=== PATIENT | male | born 1965 | race Hispanic/Latino ===

== ENCOUNTER 2021-05-06 13:37 | Inpatient (IN) | payer SELFPAY ==
[~2021-05-06] VITALS: Ht 172.7 cm; Wt 83.9 kg
[2021-05-06] MEDS ORDERED: SODIUM CHLORIDE 0.9% 1000ML 1,000 ML IV STA (13:50)
[2021-05-06] MEDS ORDERED: DEXAMETHASONE SOD PHOS 10 MG/1 ML VIAL IV ONE (14:00)
[2021-05-06 15:16] LABS: BASOPHILS % 0.1 % (0.0-1.0); EOSINOPHILS % 0.4 % (0.0-6.0); HEMATOCRIT 40.1 % (38.2-49.6); HEMOGLOBIN 13.7 g/dL (14.0-18.0); LYMPHOCYTES # (AUTO) 0.9 (1.0-3.2); LYMPHOCYTES % 9.1 % (18.0-39.1); MEAN CORPUSCULAR HEMOGLOBIN 31.1 pg (28-32); MEAN CORPUSCULAR HGB CONC 34.2 g/dL (31-35); MEAN CORPUSCULAR VOLUME 91.1 fL (81-99); MONOCYTES # (AUTO) 0.7 (0.2-0.8); MONOCYTES % 6.8 % (4.4-11.3); NEUTROPHILS % 83.1 % (38.7-80.0); PLATELET COUNT 540 x10e3/uL (140-360); RED CELL DISTRIBUTION WIDTH 12.5 % (11.7-14.4)
[2021-05-06 15:20] LABS: INR 1.04; PROTHROMBIN TIME 13.8 seconds (11.9-14.5)
[2021-05-06 15:21] LABS: PARTIAL THROMBOPLASTIN TIME 34.1 seconds (23.8-35.5)
[2021-05-06 15:27] LABS: ALANINE AMINOTRANSFERASE 38 IU/L (0-55); ALBUMIN 3.5 g/dL (3.5-5.0); ALBUMIN/GLOBULIN RATIO 0.7 (0.8-2.0); ALKALINE PHOSPHATASE 54 IU/L (40-150); ANION GAP 19.8 mmol/L (8-16); BLOOD UREA NITROGEN 9 mg/dL (7-26); BUN/CREATININE RATIO 12 (6-25); CALCIUM 9.5 mg/dL (8.4-10.2); CARBON DIOXIDE 24 mmol/L (22-29); CHLORIDE 96 mmol/L (98-107); CREATINE KINASE 60 IU/L (30-200); CREATININE, SERUM 0.78 mg/dL (0.72-1.25); EST GLOMERULAR FILTRATION RATE 103 ML/MIN (60-); GLUCOSE 141 mg/dL (74-118); POTASSIUM 3.8 mmol/L (3.5-5.1); SODIUM 136 mmol/L (136-145)
[2021-05-06 15:50] LABS: ABG PCO2 40 mmHg (35-45); ABG PH 7.43 (7.35-7.45)
[2021-05-06 15:51] LABS: ABG HCO3 27 mmol/L (22-26); ABG PO2 25 mmHg (80-105); ABG TCO2 28
[2021-05-06 16:08] LABS: CLARITY,URINE SL CLOUDY (CLEAR); COLOR,URINE AMBER (YELLOW); KETONES,URINE 1+ (NEGATIVE); LEUKOCYTE ESTERASE ,URINE NEGATIVE (NEGATIVE); NITRITE,URINE NEGATIVE (NEGATIVE); PROTEIN,URINE DIPSTICK 2+ (NEGATIVE); URINE UROBILINOGEN 1 mg/dL (0.2 - 1)
[2021-05-06 16:20] LABS: AMORPHOUS SEDIMENT,URINE FEW (FEW); BACTERIA,URINE MODERATE /HPF
[2021-05-06] MEDS ORDERED: SODIUM CHLORIDE 0.9% 50ML 50 ML ONE (16:58)
[2021-05-06] MEDS ORDERED: IOPAMIDOL 370 MG/ML 200 ML INFUS..BTL INJ ONE (16:58)
[2021-05-06] MEDS ORDERED: ASPIRIN 81 MG CHEW TAB PO ONE (17:00)
[2021-05-06] MEDS ORDERED: MORPHINE SULFATE INJ 2 MG/ML SYR IV PRN (17:00)
[2021-05-06] MEDS ORDERED: ONDANSETRON HCL INJ 2MG/ML 2ML 2 MG/ML VIAL IV PRN (17:00)
[2021-05-06] MEDS ORDERED: MORPHINE SULFATE INJ 4 MG/ML INJ 1ML IV PRN (17:15)
[2021-05-06] MEDS: SODIUM CHLORIDE 0.9% 1000ML 1,000 ML IV SCH (17:56)
[2021-05-06] MEDS ORDERED: REMDESIVIR 200MG 200 MG IV ONE (19:45)
[2021-05-06] MEDS: CEFTRIAXONE 2 GM in SODIUM CHLORIDE 0.9% 100 ML IV SCH (20:30)
[2021-05-06] MEDS: ENOXAPARIN 30 MG/0.3 ML SYR SC SCH (21:00)
[2021-05-07] VITALS (7 sets, daily range): BP systolic 110–146; BP diastolic 71–96
[2021-05-07] MEDS ORDERED: ACETAMINOPHEN 325 MG TAB PO PRN (00:30)
[2021-05-07] MEDS ORDERED: ALBUTEROL SULFATE HFA 8GM INHALATION AEROSOL INH PRN (00:30)
[2021-05-07] MEDS ORDERED: BENZONATATE 100 MG CAP PO PRN (00:30)
[2021-05-07] MEDS: IPRATROPIUM BROMIDE INHALER 12.9 GM INH INH SCH ×4 (01:00→20:50)
[2021-05-07] MEDS: FAMOTIDINE 20 MG/2 ML VIAL IV SCH ×2 (01:13→08:43)
[2021-05-07 01:29] LABS: CREATINE KINASE 56 IU/L (30-200)
[2021-05-07 06:39] LABS: HEMATOCRIT 35.6 % (38.2-49.6); LYMPHOCYTES # (AUTO) 1.1 (1.0-3.2); LYMPHOCYTES % 14.8 % (18.0-39.1); MEAN CORPUSCULAR HGB CONC 33.7 g/dL (31-35); MONOCYTES # (AUTO) 0.7 (0.2-0.8); MONOCYTES % 8.9 % (4.4-11.3); NEUTROPHILS # (AUTO) 5.6 (2.1-6.9); NEUTROPHILS % 75.5 % (38.7-80.0); PLATELET COUNT 526 x10e3/uL (140-360); RED BLOOD COUNT 3.87 x10e6/uL (4.3-5.7); RED CELL DISTRIBUTION WIDTH 12.7 % (11.7-14.4)
[2021-05-07 06:53] LABS: ALBUMIN 3.1 g/dL (3.5-5.0); ALBUMIN/GLOBULIN RATIO 0.7 (0.8-2.0); ANION GAP 14.9 mmol/L (8-16); CALCIUM 8.7 mg/dL (8.4-10.2); CREATININE, SERUM 0.75 mg/dL (0.72-1.25); MAGNESIUM 2.4 MG/DL (1.3-2.1); PHOSPHORUS 3.8 MG/DL (2.3-4.7); POTASSIUM 3.9 mmol/L (3.5-5.1)
[2021-05-07 07:05] LABS: CREATINE KINASE 62 IU/L (30-200)
[2021-05-07] MEDS: CHOLECALCIFEROL 400 UNIT TAB PO SCH (08:43)
[2021-05-07] MEDS: ASCORBIC ACID 500 MG TAB PO SCH ×2 (08:43→17:05)
[2021-05-07] MEDS: ASPIRIN 325 MG TAB EC PO SCH (08:43)
[2021-05-07] MEDS: DEXAMETHASONE SOD PHOS 10 MG/1 ML VIAL IV SCH (08:43)
[2021-05-07] MEDS: ENOXAPARIN 30 MG/0.3 ML SYR SC SCH ×2 (08:44→20:45)
[2021-05-07] MEDS: ZINC SULFATE 220 MG CAP PO SCH (08:44)
[2021-05-07] MEDS ORDERED: SODIUM CHLORIDE 0.9% 1000ML 1,000 ML ONE (13:48)
[2021-05-07] MEDS: SODIUM CHLORIDE 0.9% 1000ML 1,000 ML IV SCH ×2 (14:24→17:59)
[2021-05-07] MEDS: REMDESIVIR 100MG 100 MG IV SCH (14:25)
[2021-05-07] MEDS: CEFTRIAXONE 2 GM in SODIUM CHLORIDE 0.9% 100 ML IV SCH (17:33)
[2021-05-08] VITALS (8 sets, daily range): BP systolic 142–153; BP diastolic 91–99
[2021-05-08] MEDS: IPRATROPIUM BROMIDE INHALER 12.9 GM INH INH SCH ×5 (01:00→21:11)
[2021-05-08] MEDS: SODIUM CHLORIDE 0.9% 1000ML 1,000 ML IV SCH ×2 (04:04→17:01)
[2021-05-08 07:18] LABS: BASOPHILS % 0.1 % (0.0-1.0); EOSINOPHILS % 0.1 % (0.0-6.0); HEMATOCRIT 35.8 % (38.2-49.6); HEMOGLOBIN 11.9 g/dL (14.0-18.0); LYMPHOCYTES # (AUTO) 1.6 (1.0-3.2); LYMPHOCYTES % 18.7 % (18.0-39.1); MEAN CORPUSCULAR HEMOGLOBIN 30.8 pg (28-32); MEAN CORPUSCULAR HGB CONC 33.2 g/dL (31-35); MEAN CORPUSCULAR VOLUME 92.7 fL (81-99); MONOCYTES # (AUTO) 0.7 (0.2-0.8); MONOCYTES % 8.8 % (4.4-11.3); NEUTROPHILS # (AUTO) 6.1 (2.1-6.9); NEUTROPHILS % 71.7 % (38.7-80.0); PLATELET COUNT 569 x10e3/uL (140-360); RED BLOOD COUNT 3.86 x10e6/uL (4.3-5.7); RED CELL DISTRIBUTION WIDTH 12.7 % (11.7-14.4)
[2021-05-08] MEDS: ENOXAPARIN 30 MG/0.3 ML SYR SC SCH ×2 (09:09→21:00)
[2021-05-08] MEDS: ASPIRIN 325 MG TAB EC PO SCH (09:09)
[2021-05-08] MEDS: FAMOTIDINE 20 MG/2 ML VIAL IV SCH (09:09)
[2021-05-08] MEDS: DEXAMETHASONE SOD PHOS 10 MG/1 ML VIAL IV SCH (09:09)
[2021-05-08] MEDS: ZINC SULFATE 220 MG CAP PO SCH (09:09)
[2021-05-08] MEDS: ASCORBIC ACID 500 MG TAB PO SCH ×2 (09:09→17:01)
[2021-05-08] MEDS: CHOLECALCIFEROL 400 UNIT TAB PO SCH (09:09)
[2021-05-08 09:36] LABS: ALBUMIN/GLOBULIN RATIO 0.8 (0.8-2.0); ANION GAP 16.6 mmol/L (8-16); CALCIUM 8.5 mg/dL (8.4-10.2); CREATININE, SERUM 0.71 mg/dL (0.72-1.25); POTASSIUM 3.6 mmol/L (3.5-5.1)
[2021-05-08] MEDS: REMDESIVIR 100MG 100 MG IV SCH (13:32)
[2021-05-08] MEDS: HYDRALAZINE HCL 20 MG/ML VIAL IV PRN (17:01)
[2021-05-08] MEDS: CEFTRIAXONE 2 GM in SODIUM CHLORIDE 0.9% 100 ML IV SCH (17:01)
[2021-05-09] MEDS: IPRATROPIUM BROMIDE INHALER 12.9 GM INH INH SCH ×3 (01:00→13:00)
[2021-05-09 01:09] VITALS: BP 159/93
[2021-05-09 04:44] VITALS: BP 154/93
[2021-05-09 09:00] VITALS: BP 146/103
[2021-05-09] MEDS: ASCORBIC ACID 500 MG TAB PO SCH ×2 (09:46→17:04)
[2021-05-09] MEDS: ZINC SULFATE 220 MG CAP PO SCH (09:46)
[2021-05-09] MEDS: FAMOTIDINE 20 MG/2 ML VIAL IV SCH (09:46)
[2021-05-09] MEDS: SODIUM CHLORIDE 0.9% 1000ML 1,000 ML IV SCH ×2 (09:46→21:29)
[2021-05-09] MEDS: CHOLECALCIFEROL 400 UNIT TAB PO SCH (09:46)
[2021-05-09] MEDS: ASPIRIN 325 MG TAB EC PO SCH (09:46)
[2021-05-09] MEDS: DEXAMETHASONE SOD PHOS 10 MG/1 ML VIAL IV SCH (09:46)
[2021-05-09] MEDS: ENOXAPARIN 30 MG/0.3 ML SYR SC SCH ×2 (09:46→21:29)
[2021-05-09] MEDS: HYDRALAZINE HCL 20 MG/ML VIAL IV PRN (09:53)
[2021-05-09 09:55] LABS: BASOPHILS % 0.1 % (0.0-1.0); EOSINOPHILS % 0.3 % (0.0-6.0); HEMATOCRIT 38.9 % (38.2-49.6); HEMOGLOBIN 13.2 g/dL (14.0-18.0); LYMPHOCYTES # (AUTO) 1.1 (1.0-3.2); LYMPHOCYTES % 12.3 % (18.0-39.1); MEAN CORPUSCULAR HEMOGLOBIN 31.4 pg (28-32); MEAN CORPUSCULAR HGB CONC 33.9 g/dL (31-35); MEAN CORPUSCULAR VOLUME 92.4 fL (81-99); MONOCYTES # (AUTO) 0.5 (0.2-0.8); MONOCYTES % 5.8 % (4.4-11.3); NEUTROPHILS # (AUTO) 7.1 (2.1-6.9); NEUTROPHILS % 79.8 % (38.7-80.0); PLATELET COUNT 582 x10e3/uL (140-360); RED BLOOD COUNT 4.21 x10e6/uL (4.3-5.7); RED CELL DISTRIBUTION WIDTH 12.5 % (11.7-14.4)
[2021-05-09 10:15] LABS: ALBUMIN 3.1 g/dL (3.5-5.0); ALBUMIN/GLOBULIN RATIO 0.8 (0.8-2.0); ANION GAP 14.6 mmol/L (8-16); CALCIUM 8.8 mg/dL (8.4-10.2); CREATININE, SERUM 0.74 mg/dL (0.72-1.25); POTASSIUM 3.6 mmol/L (3.5-5.1)
[2021-05-09 12:48] VITALS: BP 133/109
[2021-05-09] MEDS: REMDESIVIR 100MG 100 MG IV SCH (14:59)
[2021-05-09] MEDS: CEFTRIAXONE 2 GM in SODIUM CHLORIDE 0.9% 100 ML IV SCH (17:04)
[2021-05-09 20:57] VITALS: BP 159/101
[2021-05-09 21:00] VITALS: BP 159/101
[2021-05-10] VITALS (8 sets, daily range): BP systolic 128–183; BP diastolic 82–101
[2021-05-10] MEDS: HYDRALAZINE HCL 20 MG/ML VIAL IV PRN ×2 (02:35→08:23)
[2021-05-10] MEDS: IPRATROPIUM BROMIDE INHALER 12.9 GM INH INH SCH ×3 (07:00→22:10)
[2021-05-10] MEDS: METOPROLOL TARTRATE 25 MG TAB PO SCH ×6 (08:30→17:20)
[2021-05-10 09:07] LABS: BASOPHILS % 0.1 % (0.0-1.0); EOSINOPHILS % 0.3 % (0.0-6.0); HEMATOCRIT 41.9 % (38.2-49.6); HEMOGLOBIN 14.1 g/dL (14.0-18.0); LYMPHOCYTES # (AUTO) 1.4 (1.0-3.2); LYMPHOCYTES % 11.9 % (18.0-39.1); MEAN CORPUSCULAR HEMOGLOBIN 30.8 pg (28-32); MEAN CORPUSCULAR HGB CONC 33.7 g/dL (31-35); MEAN CORPUSCULAR VOLUME 91.5 fL (81-99); MONOCYTES # (AUTO) 0.8 (0.2-0.8); MONOCYTES % 6.9 % (4.4-11.3); NEUTROPHILS # (AUTO) 9.3 (2.1-6.9); NEUTROPHILS % 79.9 % (38.7-80.0); PLATELET COUNT 619 x10e3/uL (140-360); RED BLOOD COUNT 4.58 x10e6/uL (4.3-5.7); RED CELL DISTRIBUTION WIDTH 12.6 % (11.7-14.4)
[2021-05-10] MEDS: ENOXAPARIN 30 MG/0.3 ML SYR SC SCH ×2 (09:28→22:10)
[2021-05-10] MEDS: ASCORBIC ACID 500 MG TAB PO SCH ×2 (09:28→17:17)
[2021-05-10] MEDS: ZINC SULFATE 220 MG CAP PO SCH (09:28)
[2021-05-10] MEDS: FAMOTIDINE 20 MG/2 ML VIAL IV SCH (09:28)
[2021-05-10] MEDS: ASPIRIN 325 MG TAB EC PO SCH (09:28)
[2021-05-10] MEDS: DEXAMETHASONE SOD PHOS 10 MG/1 ML VIAL IV SCH (09:28)
[2021-05-10] MEDS: CHOLECALCIFEROL 400 UNIT TAB PO SCH (09:28)
[2021-05-10] MEDS ORDERED: LISINOPRIL10 MG PO (09:29)
[2021-05-10 09:34] LABS: ALBUMIN 3.3 g/dL (3.5-5.0); ALBUMIN/GLOBULIN RATIO 0.8 (0.8-2.0); ANION GAP 14.6 mmol/L (8-16); CALCIUM 8.6 mg/dL (8.4-10.2); CREATININE, SERUM 0.69 mg/dL (0.72-1.25); POTASSIUM 3.6 mmol/L (3.5-5.1)
[2021-05-10] MEDS: SODIUM CHLORIDE 0.9% 1000ML 1,000 ML IV SCH (09:54)
[2021-05-10] MEDS ORDERED: ENALAPRILAT DIHYDRATE 1.25 MG/ML 2ML VIAL IV PRN (10:15)
[2021-05-10] MEDS: NIFEDIPINE CR 30 MG TAB PO ONE ×2 (12:29→12:46)
[2021-05-10] MEDS ORDERED: SODIUM CHLORIDE 0.9% 1000ML 1,000 ML ONE (13:35)
[2021-05-10] MEDS: REMDESIVIR 100MG 100 MG IV SCH (15:00)
[2021-05-10] MEDS: CEFTRIAXONE 2 GM in SODIUM CHLORIDE 0.9% 100 ML IV SCH (17:17)
[2021-05-10] MEDS ORDERED: BELLADONNA ALK/PHENOBARBITAL 5 ML UDC PO ONE (18:00)
[2021-05-11] VITALS (11 sets, daily range): BP systolic 106–138; BP diastolic 72–104
[2021-05-11] MEDS: IPRATROPIUM BROMIDE INHALER 12.9 GM INH INH SCH ×3 (03:27→20:46)
[2021-05-11] MEDS: NIFEDIPINE CR 30 MG TAB PO SCH ×2 (05:27→09:06)
[2021-05-11] MEDS: ZINC SULFATE 220 MG CAP PO SCH (09:05)
[2021-05-11] MEDS: CHOLECALCIFEROL 400 UNIT TAB PO SCH (09:05)
[2021-05-11] MEDS: ASPIRIN 325 MG TAB EC PO SCH (09:05)
[2021-05-11] MEDS: ENOXAPARIN 30 MG/0.3 ML SYR SC SCH ×2 (09:05→21:50)
[2021-05-11] MEDS: DEXAMETHASONE SOD PHOS 10 MG/1 ML VIAL IV SCH (09:05)
[2021-05-11] MEDS: FAMOTIDINE 20 MG/2 ML VIAL IV SCH (09:05)
[2021-05-11] MEDS: ASCORBIC ACID 500 MG TAB PO SCH ×2 (09:05→17:37)
[2021-05-11] MEDS: METOPROLOL TARTRATE 25 MG TAB PO SCH (09:06)
[2021-05-11 10:21] LABS: ALBUMIN 2.8 g/dL (3.5-5.0); ALBUMIN/GLOBULIN RATIO 0.6 (0.8-2.0); ANION GAP 13.6 mmol/L (8-16); CALCIUM 8.7 mg/dL (8.4-10.2); CREATININE, SERUM 0.69 mg/dL (0.72-1.25); POTASSIUM 3.6 mmol/L (3.5-5.1)
[2021-05-11 10:51] LABS: BASOPHILS % 0.2 % (0.0-1.0); EOSINOPHILS # (AUTO) 0.1 (0.0-0.4); EOSINOPHILS % 0.7 % (0.0-6.0); HEMATOCRIT 41.5 % (38.2-49.6); HEMOGLOBIN 14.1 g/dL (14.0-18.0); LYMPHOCYTES # (AUTO) 1.6 (1.0-3.2); LYMPHOCYTES % 14.7 % (18.0-39.1); MEAN CORPUSCULAR HEMOGLOBIN 30.8 pg (28-32); MEAN CORPUSCULAR VOLUME 90.6 fL (81-99); MONOCYTES # (AUTO) 0.8 (0.2-0.8); MONOCYTES % 7.5 % (4.4-11.3); NEUTROPHILS # (AUTO) 8.3 (2.1-6.9); NEUTROPHILS % 75.8 % (38.7-80.0); PLATELET COUNT 587 x10e3/uL (140-360); RED BLOOD COUNT 4.58 x10e6/uL (4.3-5.7); RED CELL DISTRIBUTION WIDTH 12.7 % (11.7-14.4)
[2021-05-11] MEDS: CEFTRIAXONE 2 GM in SODIUM CHLORIDE 0.9% 100 ML IV SCH (17:37)
[2021-05-12] VITALS (8 sets, daily range): BP systolic 117–125; BP diastolic 74–89
[2021-05-12] MEDS: IPRATROPIUM BROMIDE INHALER 12.9 GM INH INH SCH ×4 (02:22→20:01)
[2021-05-12 06:17] LABS: BASOPHILS % 0.2 % (0.0-1.0); EOSINOPHILS # (AUTO) 0.1 (0.0-0.4); EOSINOPHILS % 0.9 % (0.0-6.0); HEMATOCRIT 42.5 % (38.2-49.6); HEMOGLOBIN 14.3 g/dL (14.0-18.0); LYMPHOCYTES # (AUTO) 2.1 (1.0-3.2); LYMPHOCYTES % 20.1 % (18.0-39.1); MEAN CORPUSCULAR HEMOGLOBIN 30.6 pg (28-32); MEAN CORPUSCULAR HGB CONC 33.6 g/dL (31-35); MONOCYTES # (AUTO) 0.7 (0.2-0.8); MONOCYTES % 6.7 % (4.4-11.3); NEUTROPHILS # (AUTO) 7.3 (2.1-6.9); PLATELET COUNT 601 x10e3/uL (140-360); RED BLOOD COUNT 4.67 x10e6/uL (4.3-5.7); RED CELL DISTRIBUTION WIDTH 12.7 % (11.7-14.4)
[2021-05-12 07:00] LABS: ANION GAP 16.9 mmol/L (8-16); CALCIUM 8.8 mg/dL (8.4-10.2); CREATININE, SERUM 0.75 mg/dL (0.72-1.25); POTASSIUM 3.9 mmol/L (3.5-5.1)
[2021-05-12] MEDS: ASPIRIN 325 MG TAB EC PO SCH (09:00)
[2021-05-12] MEDS: ENOXAPARIN 30 MG/0.3 ML SYR SC SCH ×2 (09:00→21:31)
[2021-05-12] MEDS: DEXAMETHASONE SOD PHOS 10 MG/1 ML VIAL IV SCH (09:00)
[2021-05-12] MEDS: FAMOTIDINE 20 MG/2 ML VIAL IV SCH (09:00)
[2021-05-12] MEDS: ZINC SULFATE 220 MG CAP PO SCH (09:00)
[2021-05-12] MEDS: ASCORBIC ACID 500 MG TAB PO SCH ×2 (09:00→16:07)
[2021-05-12] MEDS: NIFEDIPINE CR 30 MG TAB PO SCH (09:00)
[2021-05-12] MEDS: CHOLECALCIFEROL 400 UNIT TAB PO SCH (09:00)
[2021-05-12] MEDS: METOPROLOL TARTRATE 25 MG TAB PO SCH (16:07)
[2021-05-13 01:19] VITALS: BP 119/74
[2021-05-13 06:07] VITALS: BP 127/90
[2021-05-13 07:29] VITALS: BP 129/97
[2021-05-13 07:30] VITALS: BP 129/97
[2021-05-13] MEDS: METOPROLOL TARTRATE 25 MG TAB PO SCH (08:30)
[2021-05-13] MEDS: NIFEDIPINE CR 30 MG TAB PO SCH (08:30)
[2021-05-13] MEDS: DEXAMETHASONE SOD PHOS 10 MG/1 ML VIAL IV SCH (09:17)
[2021-05-13] MEDS: FAMOTIDINE 20 MG/2 ML VIAL IV SCH (09:17)
[2021-05-13] MEDS: ZINC SULFATE 220 MG CAP PO SCH (09:17)
[2021-05-13] MEDS: CHOLECALCIFEROL 400 UNIT TAB PO SCH (09:17)
[2021-05-13] MEDS: ENOXAPARIN 30 MG/0.3 ML SYR SC SCH (09:17)
[2021-05-13] MEDS: ASCORBIC ACID 500 MG TAB PO SCH (09:17)
[2021-05-13] MEDS: ASPIRIN 325 MG TAB EC PO SCH (09:17)
[2021-05-13 10:19] LABS: BASOPHILS % 0.1 % (0.0-1.0); EOSINOPHILS # (AUTO) 0.2 (0.0-0.4); EOSINOPHILS % 1.4 % (0.0-6.0); HEMATOCRIT 41.9 % (38.2-49.6); HEMOGLOBIN 14.2 g/dL (14.0-18.0); LYMPHOCYTES # (AUTO) 1.3 (1.0-3.2); LYMPHOCYTES % 11.2 % (18.0-39.1); MEAN CORPUSCULAR HEMOGLOBIN 30.9 pg (28-32); MEAN CORPUSCULAR HGB CONC 33.9 g/dL (31-35); MEAN CORPUSCULAR VOLUME 91.3 fL (81-99); MONOCYTES # (AUTO) 0.6 (0.2-0.8); MONOCYTES % 5.3 % (4.4-11.3); NEUTROPHILS # (AUTO) 9.4 (2.1-6.9); NEUTROPHILS % 80.9 % (38.7-80.0); PLATELET COUNT 560 x10e3/uL (140-360); RED BLOOD COUNT 4.59 x10e6/uL (4.3-5.7); RED CELL DISTRIBUTION WIDTH 12.8 % (11.7-14.4)
[2021-05-13 10:39] LABS: ALBUMIN 2.9 g/dL (3.5-5.0); ALBUMIN/GLOBULIN RATIO 0.6 (0.8-2.0); ANION GAP 14.5 mmol/L (8-16); CALCIUM 8.9 mg/dL (8.4-10.2); CREATININE, SERUM 0.77 mg/dL (0.72-1.25); POTASSIUM 3.5 mmol/L (3.5-5.1)
[2021-05-13 10:54] VITALS: BP 136/86
[2021-05-13] MEDS ORDERED: medrol pack (11:09)
[2021-05-13] MEDS ORDERED: PROAIR HFA INH8.5 GM INH (11:11)
[2021-05-13] MEDS ORDERED: ELIQUIS2.5 MG PO (11:11)
[2021-05-13] MEDS ORDERED: TESSALON PERLE100 MG PO (11:12)
[2021-05-13] MEDS ORDERED: PEPCID20 MG PO (11:13)
[2021-05-13] MEDS ORDERED: LOPRESSOR25 MG PO (11:13)
[2021-05-13] MEDS ORDERED: LISINOPRIL10 MG PO (11:14)
[2021-05-13] MEDS ORDERED: ONDANSETRON HCL 4 MG ORAL DISINTEGRATING TAB PO PRN (11:30)
== END 2021-05-13 12:25 | disposition home or self-care (01) | DRG 871 ==
LOC: ER 13:44 → ERHOLD 17:02 → IMCU 05-07 11:08
PROVIDERS: ADMIT Internal Medicine; ATTEND Internal Medicine
PROC: 8E0ZXY6 Isolation (ICD-10-PCS; principal; 2021-05-06)
PROC: XW033E5 Introduction of Remdesivir Anti-infective into Peripheral Vein, Percutaneous Approach, New Technology Group 5 (ICD-10-PCS; 2021-05-07)
DX: A41.89 Other specified sepsis (principal); U07.1 COVID-19; J12.82 Pneumonia due to coronavirus disease 2019; J96.00 Acute respiratory failure, unspecified whether with hypoxia or hypercapnia; N39.0 Urinary tract infection, site not specified; E87.2 Acidosis; R65.20 Severe sepsis without septic shock; I16.0 Hypertensive urgency; Z91.19 Patient's noncompliance with other medical treatment and regimen; E66.9 Obesity, unspecified; Z68.28 Body mass index [BMI] 28.0-28.9, adult
CPT/HCPCS: 36415; 36600; 71045; 71260; 80048; 80053; 81001; 82550; 82553; 82805; 82948; 83605; 83735; 83880; 84100; 84484; 85025; 85379; 85610; 85730; 86140; 87040; 87086; 93005; 96360; 96361; 99284; J0360; J0456; J0696; J1100; J1650; J7030; J7050; Q9967; U0002